=== PATIENT | male | born 1985 | race Two or more races ===

== ENCOUNTER 2019-11-04 18:18 | Emergency (ER) | payer MEDICAID, OTHER ==
[~2019-11-04] VITALS: Ht 167.6 cm; Wt 140.0 kg
[~2019-11-04 18:18] MED LIST: TRAM-48 PO
[2019-11-04 19:07] VITALS: BP 168/92
[2019-11-04] MEDS ORDERED: DICL50TA4 PO (19:41)
[2019-11-04] MEDS ORDERED: TRAM50TA PO (19:41)
--- NOTE | 2019-11-04 19:41 | RAD ---
Exam: Right RIBS with PA chest INDICATION: Right rib pain TECHNIQUE: Frontal view of the chest with frontal and lateral views of the right ribs Comparisons: None FINDINGS: The cardiomediastinal silhouette and pulmonary vessels are within normal limits. The lung and pleural spaces are clear. No displaced rib fractures are identified. IMPRESSION: 1. No acute cardiopulmonary process. 2. No displaced rib fractures. Electronically signed by: Gisela Martínez MD (11/04/2019 7:37 PM) [id number]
--- NOTE | 2019-11-04 19:41 | PHYS DOC ---
Past Medical History Past Medical History: Hypertension Past Surgical History: No Surgical History Smoking Status: Current Every Day Smoker Alcohol Use: Occasionally Drug Use: None Adult General Chief Complaint Chief Complaint: RIB PAIN [facility] HPI Patient is a 34 year old male who presents with complaint of right anterior lower rib pain after having his walk on his back last night to pop his back. Patient states that he felt a pop in his anterior rib. Patient rates pain as moderate and describes it as sharp and stabbing in nature. He indicates that pain is worsened with deep breathing, coughing, sneezing and movements. He denies any shortness of breath however. He also denies any cough or fever.[] Review of Systems Review of Systems Constitutional: Denies fever or chills [] Respiratory: Denies cough or shortness of breath [] Cardiovascular: No additional information not addressed in HPI [] Musculoskeletal: Admits to back pain [] Integument: Denies rash or skin lesions [] Allergies Allergies Allergies Coded Allergies Type Severity Reaction Last Updated Verified No Known Drug Allergies 09/22/13 No Physical Exam Physical Exam Constitutional: Well developed, well nourished, no acute distress, non-toxic appearance. [] Cardiovascular:Heart rate regular rhythm, no murmur [] Lungs & Thorax: Bilateral breath sounds clear to auscultation [] Skin: Warm, dry, no erythema, no rash. [] Extremities: No tenderness, no cyanosis, no clubbing, ROM intact, no edema. [] Current Patient Data Vital Signs Vital Signs Date Time Temp Pulse Resp B/P (MAP) Pulse Ox O2 Delivery O2 Flow Rate FiO2 11/04/19 19:07 98.2 89 20 168/92 (117) 97 Room Air 98.2 EKG EKG [] Radiology/Procedures Radiology/Procedures [] Course & Med Decision Making Course & Med Decision Making Pertinent Labs and Imaging studies reviewed. (See chart for details) [] Dragon Disclaimer Dragon Disclaimer This electronic medical record was generated, in whole or in part, using a voice recognition dictation system. Departure Departure Impression: Primary Impression: Chest wall pain Disposition: 01 HOME, SELF-CARE Condition: STABLE Referrals: NO PCP (PCP) Patient Instructions: Chest Wall Pain Scripts Tramadol Hcl (TRAMADOL HCL) 50 Mg Tablet 50 MG PO Q6HRS PRN for PAIN, #12 TAB Prov: SHANNAN GARCES Jr. DO 11/04/19 Diclofenac Sodium (DICLOFENAC SODIUM) 50 Mg Tablet.dr 1 TAB PO BID PRN for PAIN, #20 TAB Prov: SHANNAN GARCES Jr. DO 11/04/19 SHANNAN GARCES Jr. DO Nov 04, 2019 19:41
== END 2019-11-04 19:51 | disposition home or self-care (01) ==
LOC: ER 18:18
DX: R07.89 Other chest pain (principal); R06.2 Wheezing; R07.81 Pleurodynia; R05 Cough; M54.9 Dorsalgia, unspecified; I10 Essential (primary) hypertension; F17.200 Nicotine dependence, unspecified, uncomplicated
CPT/HCPCS: 71101; 99283